=== PATIENT | female | born 1960 | race Caucasian/White ===

== ENCOUNTER 2022-02-03 16:27 | Outpatient (CLI) | payer BC, SELFPAY ==
[2022-02-03 18:03] LABS: Albumin* 4.1 g/dL (3.3-5.0); Chloride* 106 mmol/L (96-114); Sodium* 139 mmol/L (135-149)
[2022-02-03 18:04] LABS: Potassium* 4.2 mmol/L (3.6-5.1)
[2022-02-03 18:05] LABS: Cholesterol* 185 mg/dL (90-199)
[2022-02-03 18:06] LABS: Alanine Aminotransferase* 20 U/L (4-35); Alkaline Phosphatase* 108 U/L (40-150); Aspartate Amino Transferase* 22 U/L (12-35); Bilirubin Total* 0.3 mg/dL (0.1-1.5); Blood Urea Nitrogen* 16 mg/dL (7-30); Carbon Dioxide* 30 mmol/L (20-32); Glucose* 102 mg/dL (60-115); Total Protein* 6.7 g/dL (6.0-8.3); Triglycerides* 132 mg/dL (40-149)
[2022-02-03 18:07] LABS: Calcium* 9.1 mg/dL (8.4-10.6); HDL Cholesterol* 64 mg/dL (>=50); LDL Cholesterol Calculated 95 mg/dL (<100)
== END 2022-02-03 16:28 | disposition home or self-care (01) ==
PROVIDERS: PCP Internal Medicine; Visit Provider Family Medicine
DX: Z00.00 Encounter for general adult medical examination without abnormal findings (principal); R53.83 Other fatigue; E78.5 Hyperlipidemia, unspecified; E66.9 Obesity, unspecified
CPT/HCPCS: 80053; 80061; 84443

== ENCOUNTER 2022-03-30 14:58 | Outpatient (CLI) | payer BC, SELFPAY ==
--- NOTE | 2022-03-30 15:20 | CRLHL7_ITS ---
For Patients: As a result of the Century Cures Act, medical imaging exams and procedure reports are released immediately into your electronic medical record. You may view this report before your referring provider. If you have questions, please contact your health care provider. BILATERAL SCREENING MAMMOGRAM WITH COMPUTER-AIDED DETECTION AND TOMOSYNTHESIS TECHNIQUE: CC and MLO views were obtained. These mammographic images have been obtained using full-field digital technique. These mammographic images were interpreted with the benefit of computer-aided detection. Breast Tomosynthesis was used in this interpretation. COMPARISON FILM: 11/12/20, 05/02/18, 03/08/17. FINDINGS: There are scattered areas of fibroglandular density IMPRESSION: There is no radiographic evidence for malignancy. ASSESSMENT: BI-RADS Category 1: Negative RECOMMENDATION: Routine screening mammogram in 1 year. A lay language report of this examination will be provided to the patient. Travis Clinton M.D. Diagnostic Radiologist [email or web address] NATALY/Dictated by: Travis Clinton MD @ 03/31/2022 8:30:00 AM (Electronically Signed)
== END 2022-03-30 14:59 | disposition home or self-care (01) ==
LOC: MAMMO 14:58
PROVIDERS: PCP Internal Medicine; Visit Provider Family Medicine
DX: Z12.31 Encounter for screening mammogram for malignant neoplasm of breast (principal)
CPT/HCPCS: 77063; 77067